=== PATIENT | male | born 1945 | race Caucasian/White ===

== ENCOUNTER 2018-09-08 05:25 | Emergency (ER) | payer MEDICARE ==
[~2018-09-08] VITALS: Ht 172.7 cm; Wt 74.8 kg
[~2018-09-08 05:25] MED LIST: ONDA4TAB10 PO
[2018-09-08] MEDS ORDERED: ONDANSETRON ODT 4 MG TAB.RAPDIS PO ONE (06:00)
--- NOTE | 2018-09-08 06:02 | PHYS DOC ---
Past History Past Medical History: Anxiety, Cancer, Constipation, Depression, Gallstones, Hypertension, Hypothyroid Past Surgical History: Appendectomy, Cancer Surgery, Other Smoking: Cigarettes, Quit Greater Than 1 Year Alcohol Use: None Drug Use: None Adult General Chief Complaint Chief Complaint: MEDICATION REFILL [facility] HPI 73-year-old male presents for medication refill. The patient takes oxycodone, [place], morphine sulfate ER, and alprazolam multiple times a day. He has a standing prescription for all 4 of these at the [facility]. He tells me that he presents here because he cannot get down to [place]. He drove here in his own car. He denies fever or chills. He does state being nauseous and "needing Xanax". Review of Systems Review of Systems Constitutional: Denies fever or chills [] Eyes: Denies change in visual acuity, redness, or eye pain [] HENT: Denies nasal congestion or sore throat [] Respiratory: Denies cough or shortness of breath [] Cardiovascular: No additional information not addressed in HPI [] GI: Denies abdominal pain, nausea, vomiting, bloody stools or diarrhea [] : Denies dysuria or hematuria [] Musculoskeletal: Denies back pain or joint pain [] Integument: Denies rash or skin lesions [] Neurologic: Denies headache, focal weakness or sensory changes [] Endocrine: Denies polyuria or polydipsia [] All other systems were reviewed and found to be within normal limits, except as documented in this note. Allergies Allergies Allergies Coded Allergies Type Severity Reaction Last Updated Verified aspirin Allergy Intermediate Nausea and Vomiting 07/11/14 No Physical Exam Physical Exam Constitutional: Well developed, well nourished, no acute distress, non-toxic appearance. [] HENT: Normocephalic, atraumatic, bilateral external ears normal, oropharynx moist, no oral exudates, nose normal. [] Eyes: PERRLA, EOMI, conjunctiva normal, no discharge. [] Neck: Normal range of motion, no tenderness, supple, no stridor. [] Cardiovascular:Heart rate regular rhythm, no murmur [] Lungs & Thorax: Bilateral breath sounds clear to auscultation [] Abdomen: Bowel sounds normal, soft, no tenderness, no masses, no pulsatile masses. [] Skin: Warm, dry, no erythema, no rash. [] Back: No tenderness, no CVA tenderness. [] Extremities: No tenderness, no cyanosis, no clubbing, ROM intact, no edema. [] Neurologic: Alert and oriented X 3, normal motor function, normal sensory function, no focal deficits noted. [] Psychologic: Affect normal, judgement normal, mood normal. [] EKG EKG [] Radiology/Procedures Radiology/Procedures [] Course & Med Decision Making Course & Med Decision Making Pertinent Labs and Imaging studies reviewed. (See chart for details) I inform the patient that I could not refill his for controlled substances prescriptions. He has a prescribing doctor and a filling pharmacy. I told him that he must work with them to resolve getting these medications. We did give him 8 mg of Zofran ODT for his nausea. He is stable for discharge at this time. [] Dragon Disclaimer Dragon Disclaimer This electronic medical record was generated, in whole or in part, using a voice recognition dictation system. Departure Departure: Impression: Primary Impression: Medication refill Disposition: HOME, SELF-CARE Condition: STABLE Referrals: MYRON PINO DO (PCP) Patient Instructions: Medication Refill, Emergency Department Scripts Ondansetron (ONDANSETRON ODT) 4 Mg Tab.rapdis 1 TAB PO PRN Q6-8HRS PRN for VOMITING, #16 TAB Prov: ТАТЬЯНА BABIN DO 09/08/18 ТАТЬЯНА BABIN DO Sep 08, 2018 06:02
[2018-09-08 06:10] VITALS: BP 140/68
[2018-09-08] MEDS ORDERED: ONDA4TAB12 PO (06:13)
== END 2018-09-08 06:17 | disposition home or self-care (01) ==
LOC: ER 05:25
DX: R11.0 Nausea (principal); Z76.0 Encounter for issue of repeat prescription; F41.9 Anxiety disorder, unspecified; F32.9 Major depressive disorder, single episode, unspecified; I10 Essential (primary) hypertension; E03.9 Hypothyroidism, unspecified; Z87.891 Personal history of nicotine dependence; Z88.6 Allergy status to analgesic agent
CPT/HCPCS: 99283; Q0162

== ENCOUNTER 2019-04-15 18:27 | Inpatient (IN) | payer MEDICARE ==
[~2019-04-15] VITALS: Ht 172.7 cm; Wt 73.9 kg
[~2019-04-15 18:27] MED LIST changes: +ONDA4TAB12 PO
[2019-04-15] MEDS ORDERED: IV NORMAL SALINE 1,000ML 1,000 ML IV ONE (19:00)
[2019-04-15 19:12] LABS: BASO % 1 % (0-3); EOS # 0.3 x10^3/uL (0.0-0.7); EOS % 5 % (0-3); HEMATOCRIT 33.2 % (39.0-53.0); HEMOGLOBIN 11.2 g/dL (13.0-17.5); LYMPH # 2.6 x10^3/uL (1.0-4.8); LYMPH % 40 % (24-48); MEAN CORPUSCULAR HEMOGLOBIN 37 pg (25-35); MEAN CORPUSCULAR HGB CONC 34 g/dL (31-37); MEAN CORPUSCULAR VOLUME 108 fL (79-100); MONO # 0.6 x10^3/uL (0.0-1.1); MONO % 9 % (0-9); NEUT # 3.1 x10^3uL (1.8-7.7); NEUT % 47 % (31-73); PLATELET COUNT 178 x10^3/uL (140-400); RED BLOOD COUNT 3.06 x10^6/uL (4.30-5.70); RED CELL DISTRIBUTION WIDTH 14.6 % (11.5-14.5); WHITE BLOOD COUNT 6.7 x10^3/uL (4.0-11.0)
[2019-04-15] MEDS: NALOXONE 0.4 MG/ML VIAL. IV ONE ×2 (19:15→19:19)
[2019-04-15 19:37] LABS: CALCIUM 8.9 mg/dL (8.5-10.1); CREATININE 1.1 mg/dL (0.7-1.3); GFR 65.3; POTASSIUM 3.9 mmol/L (3.5-5.1)
[2019-04-15 19:43] LABS: ALBUMIN 3.7 g/dL (3.4-5.0); TOTAL BILIRUBIN 0.2 mg/dL (0.2-1.0); TOTAL PROTEIN 7.3 g/dL (6.4-8.2)
[2019-04-15 20:18] LABS: BACTERIA,URINE 0 /HPF (0-FEW); BILIRUBIN,URINE NEG (NEG); CLARITY,URINE CLOUDY; COLOR,URINE AMBER; GLUCOSE,URINE NEG (NEG); NITRITE,URINE NEG (NEG); SQUAMOUS EPITHELIAL CELL,UR FEW /LPF; UROBILINOGEN,URINE 0.2 mg/dL (0.2 mg/dL)
[2019-04-15 20:21] LABS: AMPHETAMINE/METHAMPHETAMINE NEG (NEG); BARBITURATES NEG (NEG); BENZODIAZEPINES POS (NEG); CANNABINOIDS NEG (NEG); COCAINE NEG (NEG); METHADONE NEG (NEG); OPIATES POS (NEG); PHENCYCLIDINE NEG (NEG)
--- NOTE | 2019-04-15 20:36 | PHYS DOC ---
Past History Past Medical History: Cancer Past Surgical History: No Surgical History Smoking: Cigarettes, Quit Greater Than 1 Year Alcohol Use: None Drug Use: None Adult General Chief Complaint Chief Complaint: ALTERED MENTAL STATUS HPI HPI Patient is a 73-year-old male with metastatic cancer who takes high-dose morphine for chronic pain control. He was found at a local restaurant essentially unresponsive EMS was called and EMS brought him here for evaluation. Patient is unable to provide much in the way of history secondary to his altered mental status.[] Review of Systems Review of Systems Review of systems is unobtainable secondary to altered mental status Current Medications Current Medications Current Medications Medications (Trade) Dose Ordered Sig/Juan Manuel Start Time Stop Time Status Last Admin Dose Admin Naloxone HCl (Narcan) 0.8 mg 1X ONCE 04/15/19 19:15 04/15/19 19:16 DC Sodium Chloride 1,000 ml @ 1,000 mls/hr 1X ONCE 04/15/19 19:00 04/15/19 19:59 DC 04/15/19 19:05 1,000 MLS/HR Allergies Allergies Allergies Coded Allergies Type Severity Reaction Last Updated Verified aspirin Allergy Intermediate Nausea and Vomiting 07/11/14 No Physical Exam Physical Exam Constitutional: Frail chronically ill obtunded. [] HENT: Normocephalic, atraumatic, bilateral external ears normal, oropharynx moist, no oral exudates, nose normal. [] Eyes: Pupils 1 mm and sluggish. [] Neck: Normal range of motion, no tenderness, supple, no stridor. [] Cardiovascular:Heart rate bradycardic no murmur[] Lungs & Thorax: Bilateral breath sounds clear to auscultation [] Abdomen: Bowel sounds diminished but his abdomen is soft nontender nondistended. [] Skin: Warm, dry, no erythema, no rash. [] Back: No tenderness, no CVA tenderness. [] Extremities: No tenderness, no cyanosis, no clubbing, ROM intact, no edema. [] Neurologic: Arouses to vigorous stimulation moves all extremities will answer questions. [] Psychologic: Somnolent. [] Current Patient Data Vital Signs Vital Signs Date Time Temp Pulse Resp B/P (MAP) Pulse Ox O2 Delivery O2 Flow Rate FiO2 04/15/19 20:16 51 14 109/53 (71) 98 Room Air 04/15/19 18:48 98.1 Lab Results Laboratory Tests Test 04/15/19 18:33 04/15/19 18:35 04/15/19 19:36 Glucose (Fingerstick) 95 mg/dL (70-99) White Blood Count 6.7 x10^3/uL (4.0-11.0) Red Blood Count 3.06 x10^6/uL (4.30-5.70) L Hemoglobin 11.2 g/dL (13.0-17.5) L Hematocrit 33.2 % (39.0-53.0) L Mean Corpuscular Volume 108 fL (79-100) H Mean Corpuscular Hemoglobin 37 pg (25-35) H Mean Corpuscular Hemoglobin Concent 34 g/dL (31-37) Red Cell Distribution Width 14.6 % (11.5-14.5) H Platelet Count 178 x10^3/uL (140-400) Neutrophils (%) (Auto) 47 % (31-73) Lymphocytes (%) (Auto) 40 % (24-48) Monocytes (%) (Auto) 9 % (0-9) Eosinophils (%) (Auto) 5 % (0-3) H Basophils (%) (Auto) 1 % (0-3) Neutrophils # (Auto) 3.1 x10^3uL (1.8-7.7) Lymphocytes # (Auto) 2.6 x10^3/uL (1.0-4.8) Monocytes # (Auto) 0.6 x10^3/uL (0.0-1.1) Eosinophils # (Auto) 0.3 x10^3/uL (0.0-0.7) Basophils # (Auto) 0.0 x10^3/uL (0.0-0.2) Sodium Level 142 mmol/L (136-145) Potassium Level 3.9 mmol/L (3.5-5.1) Chloride Level 104 mmol/L (98-107) Carbon Dioxide Level 29 mmol/L (21-32) Anion Gap 9 (6-14) Blood Urea Nitrogen 21 mg/dL (8-26) Creatinine 1.1 mg/dL (0.7-1.3) Estimated GFR (Cockcroft-Gault) 65.3 BUN/Creatinine Ratio 19 (6-20) Glucose Level 101 mg/dL (70-99) H Calcium Level 8.9 mg/dL (8.5-10.1) Total Bilirubin 0.2 mg/dL (0.2-1.0) Aspartate Amino Transferase (AST) 22 U/L (15-37) Alanine Aminotransferase (ALT) 21 U/L (16-63) Alkaline Phosphatase 84 U/L (46-116) Troponin I Quantitative < 0.017 ng/mL (0-0.055) Total Protein 7.3 g/dL (6.4-8.2) Albumin 3.7 g/dL (3.4-5.0) Albumin/Globulin Ratio 1.0 (1.0-1.7) Ethyl Alcohol Level < 10 mg/dL (0-10) Urine Collection Type Unknown Urine Color [place] Urine Clarity Cloudy Urine pH 5.5 Urine Specific [place] >=1.030 Urine Protein 30 mg/dl (NEG-TRACE) Urine Glucose (UA) Neg mg/dL (NEG) Urine Ketones (Stick) Neg mg/dL (NEG) Urine Blood Large (NEG) Urine Nitrite Neg (NEG) Urine Bilirubin Neg (NEG) Urine Urobilinogen Dipstick 0.2 mg/dL (0.2 mg/dL) Urine Leukocyte Esterase Trace (NEG) Urine RBC 1-2 /HPF (0-2) Urine WBC 11-20 /HPF (0-4) Urine Squamous Epithelial Cells Few /LPF Urine Bacteria 0 /HPF (0-FEW) Urine Opiates Screen Pos (NEG) Urine Methadone Screen Neg (NEG) Urine Barbiturates Neg (NEG) Urine Phencyclidine Screen Neg (NEG) Urine Amphetamine/Methamphetamine Neg (NEG) Urine Benzodiazepines Screen Pos (NEG) Urine Cocaine Screen Neg (NEG) Urine Cannabinoids Screen Neg (NEG) Urine Ethyl Alcohol Neg (NEG) EKG EKG EKG: Sinus bradycardia and no obvious ischemia rate of 50[] Radiology/Procedures Radiology/Procedures [] Course & Med Decision Making Course & Med Decision Making Pertinent Labs and Imaging studies reviewed. (See chart for details) [ED course: Evaluation reveals a 73-year-old male who is quite somnolent. On ar rival he had signs of overdose including respiratory rate of 8-10 difficult to arouse. We were going to give him some Narcan by the time the medication was ready to administer he started to wake up a little bit more. Neurologically he was intact in other words there were no lateralizing neurologic symptoms that I could identify he was answering questions appropriate but still very somnolent. His urine drug screen showed both opiates and benzos. I suspect he is overdosed on his prescription morphine.] Dragon Disclaimer Dragon Disclaimer This electronic medical record was generated, in whole or in part, using a voice recognition dictation system. Departure Departure: Impression: Primary Impression: Accidental overdose Disposition: ADMITTED INPATIENT Admitting Physician: Christal Otto Condition: GUARDED Referrals: NON,STAFF (PCP) Problem Qualifiers Primary Impression: Accidental overdose Encounter type: initial encounter Qualified Codes: T50.901A - Poisoning by unspecified drugs, medicaments and biological substances, accidental (unintentional), initial encounter MITCHELL ANTHONY DO Apr 15, 2019 20:36
[2019-04-15] MEDS ORDERED: ONDANSETRON PF 4 MG/2 ML VIAL. IV PRN (20:45)
[2019-04-15] MEDS ORDERED: LISI10TA2 PO (21:51)
[2019-04-15] MEDS ORDERED: ATEN25TA2 PO (21:51)
[2019-04-15] MEDS ORDERED: CELE-20 PO (21:51)
[2019-04-15] MEDS ORDERED: SERT100T8 PO (21:51)
[2019-04-15] MEDS ORDERED: LEVO150T5 PO (22:03)
[2019-04-15] MEDS ORDERED: SIMV10TA15 PO (22:03)
[2019-04-15] MEDS ORDERED: HYDR12.58 PO (22:03)
[2019-04-15] MEDS ORDERED: POTA10TA PO (22:03)
[2019-04-15 22:41] VITALS: BP 99/55
--- NOTE | 2019-04-15 22:50 | EKG ---
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
[2019-04-15] MEDS ORDERED: NALOXONE 0.4 MG/ML VIAL. IV ONE (23:00)
[2019-04-15] MEDS: IV NORMAL SALINE 1,000ML 1,000 ML IV SCH (23:01)
--- NOTE | 2019-04-16 00:36 | NUR ---
PT presented with accidental overdose with AMS. PT transported to unit via EMS, safely transferred to bed. PT sedated, somnolent at time of assessment. PT able to arouse but not able to receive much history. 04/06/19. PT lives with daughter. History obtained mostly from previous visits. PT unable to confirm medications.
[2019-04-16 05:54] VITALS: BP 106/63
[2019-04-16] MEDS: IV NORMAL SALINE 1,000ML 1,000 ML IV SCH (06:06)
--- NOTE | 2019-04-16 09:27 | NUR ---
NURSING NOTES: UPON MORNING ASSESSMENT TODAY PATIENT STATES HE DOES NOT BELIEVE HE HAD AN OVERDOSE OF MEDICATION. PATIENT STATES HIS PAST AWAY "LAST SATURDAY" (04/06/19). PATIENT STATES HE HAS BEEN AWAKE FOR THE PAST 3 DAYS WITHOUT SLEEP, PATIENT BELIEVES HE JUST "PASSED OUT" DUE TO LACK OF SLEEP. WILL CONTINUE TO MONITOR.
[2019-04-16 10:16] VITALS: BP 113/60
--- NOTE | 2019-04-16 12:49 | NUR ---
NURSING NOTES: PATIENT STATES HE WANTS TO LEAVE WITHOUT BEING SEEN BY DR. LORENZO. STATES "HE IS NOT MY DOCTOR AND KNOWS NOTHING ABOUT ME." PATIENT EDUCATION ON RISKS OF LEAVING AMA BUT STATES UNDERSTANDING. DR. LORENZO MADE AWARE. DAUGHTER, DEREK, CALLED STATES SHE WILL COME PICK HIM UP. NO FURTHER CONCERNS AT THIS TIME.
--- NOTE | 2019-04-16 14:44 | NUR ---
NURSING NOTES: PATIENT DAUGHTER HERE AT THIS TIME AND ESCORTED PATIENT TO FAMILY VEHICLE. ALL PATIENT BELONGINGS SENT WITH PATIENT.
== END 2019-04-16 14:46 | disposition left against medical advice (07) | DRG 918 ==
LOC: ER 18:27 → 1 SOUTH 20:38
PROVIDERS: ADMIT Internal Medicine; ATTEND Internal Medicine
DX: T50.901A Poisoning by unspecified drugs, medicaments and biological substances, accidental (unintentional), initial encounter (principal); G89.29 Other chronic pain; C80.1 Malignant (primary) neoplasm, unspecified; Z53.29 Procedure and treatment not carried out because of patient's decision for other reasons; Y92.89 Other specified places as the place of occurrence of the external cause; Z87.891 Personal history of nicotine dependence
CPT/HCPCS: 36415; 80053; 80307; 81001; 82947; 84484; 85025; 87086; 87186; 93005; 96360; G0480; J2310; 99285-25; J7030

== ENCOUNTER 2019-07-01 21:05 | Emergency (ER) | payer MEDICARE ==
[~2019-07-01] VITALS: Ht 172.7 cm; Wt 73.6 kg
[~2019-07-01 21:05] MED LIST changes: +ATEN25TA2 PO; +CELE-20 PO; +HYDR12.58 PO; +LEVO150T5 PO; +LISI10TA2 PO; +POTA10TA PO; +SERT100T8 PO; +SIMV10TA15 PO
[2019-07-01 21:58] LABS: BASO % 0 % (0-3); EOS # 0.3 x10^3/uL (0.0-0.7); EOS % 3 % (0-3); HEMATOCRIT 27.1 % (39.0-53.0); LYMPH # 1.8 x10^3/uL (1.0-4.8); LYMPH % 21 % (24-48); MEAN CORPUSCULAR HEMOGLOBIN 36 pg (25-35); MEAN CORPUSCULAR HGB CONC 33 g/dL (31-37); MEAN CORPUSCULAR VOLUME 110 fL (79-100); MONO # 0.5 x10^3/uL (0.0-1.1); MONO % 6 % (0-9); NEUT # 5.7 x10^3uL (1.8-7.7); NEUT % 69 % (31-73); PLATELET COUNT 217 x10^3/uL (140-400); RED BLOOD COUNT 2.47 x10^6/uL (4.30-5.70); WHITE BLOOD COUNT 8.3 x10^3/uL (4.0-11.0)
[2019-07-01 22:12] LABS: CALCIUM 8.6 mg/dL (8.5-10.1); GFR 72.6; POTASSIUM 3.4 mmol/L (3.5-5.1)
[2019-07-01 22:17] LABS: ALBUMIN 2.8 g/dL (3.4-5.0); DIRECT BILIRUBIN 0.1 mg/dL (0.0-0.2); MAGNESIUM 1.6 mg/dL (1.8-2.4); TOTAL BILIRUBIN 0.3 mg/dL (0.2-1.0); TOTAL PROTEIN 6.3 g/dL (6.4-8.2)
[2019-07-01 22:55] LABS: BARBITURATES NEG (NEG); BENZODIAZEPINES POS (NEG); CANNABINOIDS NEG (NEG); COCAINE NEG (NEG); METHADONE NEG (NEG); OPIATES POS (NEG); PHENCYCLIDINE NEG (NEG)
[2019-07-01 23:00] LABS: AMPHETAMINE/METHAMPHETAMINE NEG (NEG)
[2019-07-01 23:06] LABS: BILIRUBIN,URINE NEG (NEG); CLARITY,URINE HAZY; COLOR,URINE YELLOW; GLUCOSE,URINE NEG (NEG); NITRITE,URINE NEG (NEG); UROBILINOGEN,URINE 0.2 mg/dL (0.2 mg/dL)
[2019-07-01 23:07] LABS: BACTERIA,URINE MOD /HPF (0-FEW); SQUAMOUS EPITHELIAL CELL,UR OCC /LPF; WBC,URINE >40 /HPF (0-4)
[2019-07-02] MEDS ORDERED: SIMV10TA15 PO (00:11)
[2019-07-02] MEDS ORDERED: MORP60TA37 PO (00:11)
[2019-07-02] MEDS ORDERED: HYDR-3136 PO (00:11)
[2019-07-02] MEDS ORDERED: CHOL200078 PO (00:11)
[2019-07-02] MEDS ORDERED: [UNRECOGNIZED DRUG - OTHER] (00:11)
[2019-07-02] MEDS ORDERED: SULF1TAB24 PO (00:11)
[2019-07-02] MEDS ORDERED: [UNRECOGNIZED DRUG - OTHER] (00:11)
[2019-07-02] MEDS ORDERED: SERT25TA PO (00:11)
[2019-07-02] MEDS ORDERED: ASCO500C PO (00:11)
[2019-07-02] MEDS ORDERED: ALPR1TAB6 PO (00:11)
[2019-07-02] MEDS ORDERED: [UNRECOGNIZED DRUG - REMARK] (00:37)
--- NOTE | 2019-07-02 00:40 | PHYS DOC ---
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 Patient was just discharged from hospital yesterday af ter having taken accidental overdose of pain medication. Patient does have history of cancer and had accidentally taken too much his pain medication. Family indicates that patient has been making comments over the last few months, such as asking them to take him out back and shooting him. Patient denies any suicidal or homicidal ideations at this time. He does admit to saying those things states that he didn't really mean it and he knows that they were never harm him.[] Review of Systems Review of Systems Constitutional: Denies fever or chills [] Respiratory: Denies cough or shortness of breath [] Cardiovascular: No additional information not addressed in HPI [] GI: Denies abdominal pain, nausea, vomiting, bloody stools or diarrhea [] Integument: Denies rash or skin lesions [] Neurologic: Denies headache, focal weakness or sensory changes [] All other systems were reviewed and found to be within normal limits, except as documented in this note. Allergies Allergies Allergies Coded Allergies Type Severity Reaction Last Updated Verified aspirin Allergy Severe Swelling 07/01/19 No oxycodone Allergy Severe 07/02/19 Yes tizanidine Allergy Severe 07/02/19 Yes Physical Exam Physical Exam Constitutional: Well developed, well nourished, no acute distress, non-toxic appearance. [] HENT: Normocephalic, atraumatic, bilateral external ears normal, oropharynx moist, no oral exudates, nose normal. [] Eyes: PERRLA, EOMI, conjunctiva normal, no discharge. [] Neck: Normal range of motion, no tenderness, supple, no stridor. [] Cardiovascular:Heart rate regular rhythm, no murmur [] Lungs & Thorax: Bilateral breath sounds clear to auscultation [] Abdomen: Bowel sounds normal, soft, no tenderness. [] Skin: Warm, dry, no erythema, no rash. [] Extremities: No tenderness, no cyanosis, no clubbing, ROM intact, no edema. [] Neurologic: Alert and oriented X 3, normal motor function, normal sensory function, no focal deficits noted. [] Psychologic: Affect normal, mood depressed. [] Current Patient Data Vital Signs Vital Signs Date Time Temp Pulse Resp B/P (MAP) Pulse Ox O2 Delivery O2 Flow Rate FiO2 07/01/19 21:19 98.6 70 16 123/65 (84) 97 Room Air Lab Results Laboratory Tests Test 07/01/19 21:40 07/01/19 22:30 White Blood Count 8.3 x10^3/uL (4.0-11.0) Red Blood Count 2.47 x10^6/uL (4.30-5.70) L Hemoglobin 9.0 g/dL (13.0-17.5) L Hematocrit 27.1 % (39.0-53.0) L Mean Corpuscular Volume 110 fL (79-100) H Mean Corpuscular Hemoglobin 36 pg (25-35) H Mean Corpuscular Hemoglobin Concent 33 g/dL (31-37) Red Cell Distribution Width 14.0 % (11.5-14.5) Platelet Count 217 x10^3/uL (140-400) Neutrophils (%) (Auto) 69 % (31-73) Lymphocytes (%) (Auto) 21 % (24-48) L Monocytes (%) (Auto) 6 % (0-9) Eosinophils (%) (Auto) 3 % (0-3) Basophils (%) (Auto) 0 % (0-3) Neutrophils # (Auto) 5.7 x10^3uL (1.8-7.7) Lymphocytes # (Auto) 1.8 x10^3/uL (1.0-4.8) Monocytes # (Auto) 0.5 x10^3/uL (0.0-1.1) Eosinophils # (Auto) 0.3 x10^3/uL (0.0-0.7) Basophils # (Auto) 0.0 x10^3/uL (0.0-0.2) Sodium Level 140 mmol/L (136-145) Potassium Level 3.4 mmol/L (3.5-5.1) L Chloride Level 107 mmol/L (98-107) Carbon Dioxide Level 24 mmol/L (21-32) Anion Gap 9 (6-14) Blood Urea Nitrogen 15 mg/dL (8-26) Creatinine 1.0 mg/dL (0.7-1.3) Estimated GFR (Cockcroft-Gault) 72.6 Glucose Level 116 mg/dL (70-99) H Calcium Level 8.6 mg/dL (8.5-10.1) Magnesium Level 1.6 mg/dL (1.8-2.4) L Total Bilirubin 0.3 mg/dL (0.2-1.0) Direct Bilirubin 0.1 mg/dL (0.0-0.2) Aspartate Amino Transferase (AST) 22 U/L (15-37) Alanine Aminotransferase (ALT) 17 U/L (16-63) Alkaline Phosphatase 55 U/L (46-116) Total Protein 6.3 g/dL (6.4-8.2) L Albumin 2.8 g/dL (3.4-5.0) L Ethyl Alcohol Level < 10 mg/dL (0-10) Urine Collection Type Void Urine Color Yellow Urine Clarity Hazy Urine pH 5.5 Urine Specific [place] 1.025 Urine Protein 100 mg/dl (NEG-TRACE) Urine Glucose (UA) Neg mg/dL (NEG) Urine Ketones (Stick) Neg mg/dL (NEG) Urine Blood Large (NEG) Urine Nitrite Neg (NEG) Urine Bilirubin Neg (NEG) Urine Urobilinogen Dipstick 0.2 mg/dL (0.2 mg/dL) Urine Leukocyte Esterase Small (NEG) Urine RBC 6-10 /HPF (0-2) Urine WBC >40 /HPF (0-4) Urine Squamous Epithelial Cells Occ /LPF Urine Bacteria Mod /HPF (0-FEW) Urine Opiates Screen Pos (NEG) Urine Methadone Screen Neg (NEG) Urine Barbiturates Neg (NEG) Urine Phencyclidine Screen Neg (NEG) Urine Amphetamine/Methamphetamine Neg (NEG) Urine Benzodiazepines Screen Pos (NEG) Urine Cocaine Screen Neg (NEG) Urine Cannabinoids Screen Neg (NEG) Urine Ethyl Alcohol Neg (NEG) EKG EKG [] Radiology/Procedures Radiology/Procedures [] Course & Med Decision Making Course & Med Decision Making Pertinent Labs and Imaging studies reviewed. (See chart for details) Patient moved to room upon arrival was evaluated by ER staff after which blood work was obtained. Patient's workup has returned unremarkable and patient evaluated by tele-psych. After tele-psych evaluation, screen her did not feel the patient met criteria for involuntary hold and has completed a safety plan with patient. Dragon Disclaimer Dragon Disclaimer This electronic medical record was generated, in whole or in part, using a voice recognition dictation system. Departure Departure: Impression: Primary Impression: Depressed affect Disposition: 01 HOME, SELF-CARE Condition: STABLE Referrals: LON GUNDERSON MD (PCP) Patient Instructions: Depression, Adult, Suicidal Feelings, How to Help Yourself, Suicide, Helping Someone Who is Suicidal HAROON DEUTSCH Jr. DO Jul 02, 2019 00:40
[2019-07-02 02:30] VITALS: BP 112/61
== END 2019-07-02 02:57 | disposition home or self-care (01) ==
LOC: ER 21:05
DX: F32.9 Major depressive disorder, single episode, unspecified (principal); E78.00 Pure hypercholesterolemia, unspecified; I10 Essential (primary) hypertension; E03.9 Hypothyroidism, unspecified; G89.29 Other chronic pain; Z87.891 Personal history of nicotine dependence; Z88.6 Allergy status to analgesic agent; Z88.8 Allergy status to other drugs, medicaments and biological substances; Z88.5 Allergy status to narcotic agent
CPT/HCPCS: 36415; 80048; 80076; 80307; 81001; 83735; 85025; 87086; 99284; G0480

== ENCOUNTER 2020-01-29 14:11 | Emergency (ER) | payer MEDICARE ==
[~2020-01-29] VITALS: Ht 172.7 cm; Wt 75.5 kg
[~2020-01-29 14:11] MED LIST changes: +ALPR1TAB6 PO; +ASCO500C PO; +CHOL200078 PO; +HYDR-3136 PO; +MORP60TA37 PO; +SERT25TA PO; +SULF1TAB24 PO; +[UNRECOGNIZED DRUG - OTHER]; +[UNRECOGNIZED DRUG - OTHER]; +[UNRECOGNIZED DRUG - REMARK]
--- NOTE | 2020-01-29 14:21 | PHYS DOC ---
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 EMS personnel and are primary historians as patient cannot accurately re call entirety of medical history. Per , patient began "acting different "yesterday morning without any known inciting event or trauma. This progressed throughout the day, patient was talking to his mother who had a long time ago and not making sense. He has been alert to person and place but not year or time which is not usual for him. Patient admits to taking all medications as prescribed, he has history of taking too many hydrocodone during 1 setting which is what suspects happened today. Patient denies any recent antibiotic use or other changes in baseline health. He has complicated past medical history, has had his prostate removed and partial left nephrectomy from primary prostate cancer. He has been going down to [facility] in [facility] for unknown cancer related injections? He has history of renal failure in the past and admits intermittent dialysis, reports last time he had dialysis was greater than 2 months ago. He still makes urine. On arrival, he reports being thirsty with no other concerning complaints such as COVID-19 contact, fever, chills, chest pain, shortness of breath, abdominal pain, changes in bladder or bowel function, known blood loss, recent travel, hemoptysis, or changes in weight. Review of Systems Review of Systems Fourteen body systems of review of systems have been reviewed. See HPI for pertinent positives and negative responses, other orosco all other systems are negative, non-pertinent or non-contributory Allergies Allergies Allergies Coded Allergies Type Severity Reaction Last Updated Verified aspirin Allergy Severe Swelling 07/01/19 No oxycodone Allergy Severe 07/02/19 Yes tizanidine Allergy Severe 07/02/19 Yes Physical Exam Physical Exam Constitutional: Pt is oriented to person, place, but not time. Pt appears malnourished with poor hygiene, has mulch on backside of jacket. HENT: Head: Normocephalic and atraumatic. Mouth/Throat: Oropharynx is clear and moist. Poor dentition No hematomas or lacerations or abrasions to face or scalp OP clear, no blood, no malocclusion, dentition intact Nares clear, no nasal septal hematoma TMs clear, no hemotympanum Midface stable Eyes: Conjunctivae and EOM are normal. Pupils are equal, round, and reactive to light. Neck: C-spine midline nontender, no step-offs Cardiovascular: Normal rate, regular rhythm and normal heart sounds. Pulmonary/Chest: Effort normal and breath sounds normal. No respiratory distress. No wheezes. CTA bilaterally Abdominal: Soft. Bowel sounds are normal. Pt exhibits no distension. There is no tenderness. Musculoskeletal: No bony tenderness to extremities, no deformities, full ROM extremities Chest wall stable Pelvis stable and non-tender No vertebral TTP and spine without stepoffs Neurological: Pt is alert and oriented to person, place, but not time. Believes the year is 1999, states the president is Currymarylou [place] Moving all extremities willfully, able to wiggle all fingers and toes Alert Sensation grossly intact Skin: Skin is warm and dry. No abrasions, no lacerations Psychiatric: Behavior is appropriate for situation Nursing note and vitals reviewed. Current Patient Data Vital Signs Vital Signs Date Time Temp Pulse Resp B/P (MAP) Pulse Ox O2 Delivery O2 Flow Rate FiO2 01/29/20 15:36 98.7 50 16 146/63 (90) 92 01/29/20 15:01 Room Air Lab Results Laboratory Tests Test 01/29/20 14:24 01/29/20 16:24 White Blood Count 8.5 x10^3/uL (4.0-11.0) Red Blood Count 2.26 x10^6/uL (4.30-5.70) Hemoglobin 8.2 g/dL (13.0-17.5) Hematocrit 25.3 % (39.0-53.0) Mean Corpuscular Volume 112 fL (79-100) Mean Corpuscular Hemoglobin 36 pg (25-35) Mean Corpuscular Hemoglobin Concent 33 g/dL (31-37) Red Cell Distribution Width 14.6 % (11.5-14.5) Platelet Count 174 x10^3/uL (140-400) Neutrophils (%) (Auto) 83 % (31-73) Lymphocytes (%) (Auto) 12 % (24-48) Monocytes (%) (Auto) 5 % (0-9) Eosinophils (%) (Auto) 0 % (0-3) Basophils (%) (Auto) 0 % (0-3) Neutrophils # (Auto) 7.0 x10^3uL (1.8-7.7) Lymphocytes # (Auto) 1.1 x10^3/uL (1.0-4.8) Monocytes # (Auto) 0.4 x10^3/uL (0.0-1.1) Eosinophils # (Auto) 0.0 x10^3/uL (0.0-0.7) Basophils # (Auto) 0.0 x10^3/uL (0.0-0.2) Prothrombin Time 12.1 SEC (9.4-11.4) Prothromb Time International Ratio 1.2 (0.9-1.1) Activated Partial Thromboplast Time 26 SEC (23-33) Sodium Level 137 mmol/L (136-145) Potassium Level 6.7 mmol/L (3.5-5.1) Chloride Level 102 mmol/L (98-107) Carbon Dioxide Level 8 mmol/L (21-32) Anion Gap 27 (6-14) Blood Urea Nitrogen 98 mg/dL (8-26) Creatinine 11.6 mg/dL (0.7-1.3) Estimated GFR (Cockcroft-Gault) 4.3 BUN/Creatinine Ratio 8 (6-20) Glucose Level 115 mg/dL (70-99) Calcium Level 9.3 mg/dL (8.5-10.1) Magnesium Level 1.8 mg/dL (1.8-2.4) Total Bilirubin 0.3 mg/dL (0.2-1.0) Aspartate Amino Transf (AST/SGOT) 81 U/L (15-37) Alanine Aminotransferase (ALT/SGPT) 34 U/L (16-63) Alkaline Phosphatase 66 U/L (46-116) Ammonia 29 mcmol/L (11-34) Troponin I Quantitative 0.072 ng/mL (0-0.055) Total Protein 7.0 g/dL (6.4-8.2) Albumin 3.6 g/dL (3.4-5.0) Albumin/Globulin Ratio 1.1 (1.0-1.7) Salicylates Level < 2.8 mg/dL (2.8-20.0) Salicylate Last Dose Date Unknown Salicylate Last Dose Time Unknown Acetaminophen Level < 2.0 mcg/mL (10-30) Acetaminophen Last Dose Date Unknown Acetaminophen Last Dose Time Unknown Ethyl Alcohol Level < 10 mg/dL (0-10) Blood Gas pH 7.18 (7.35-7.46) Blood Gas PCO2 27 mmHg (35-46) Blood Gas PO2 81 mmHg (71-100) Blood Gas HCO3 10 mmol/L (21-28) Arterial Bld O2 Saturation (Calc) 93 % (92-99) FiO2 21 % EKG EKG EKG ordered and interpreted by myself at 1431 hrs. as sinus rhythm at 54 bpm, unremarkable intervals, no axis deviation, no acute ischemic findings, no STEMI Radiology/Procedures Radiology/Procedures PROCEDURE: PORTABLE CHEST 1V PORTABLE CHEST 1V Clinical indications: Altered mental status COMPARISON: July 11, 2014. Findings: Chronic interstitial lung disease is seen bilaterally. There is a new ill-defined infiltrate within the lateral right midlung zone. No pleural effusion or pneumothorax is seen. The heart size and mediastinum and pulmonary arteries and both alisha are stable. Increased density of the bones is seen. This is consistent with osteoblastic metastatic disease. Impression: New small ill-defined lateral right midlung zone infiltrate. Osteoblastic metastatic disease Electronically signed by: Rasheed Christianson MD (01/29/2020 3:04 PM) [id number] PROCEDURE: CT HEAD WO CONTRAST INDICATION: Reason: AMS, CONFUSION / Spl. Instructions: / History: COMPARISON: None. TECHNIQUE: Axial CT images obtained through the head without intravenous contrast. One or more of the following individualized dose reduction techniques were utilized for this examination: 1. Automated exposure control; 2. Adjustment of the mA and/or kV according to patient size; 3. Use of iterative reconstruction technique. FINDINGS: No intracranial hemorrhage. No midline shift. Basal cisterns patents. Ventricles and sulci are globally prominent. No acute osseous abnormality. Orbits and paranasal sinuses unremarkable. Scattered foci of low attenuation within the white matter. There is a small region of encephalomalacia in the left cerebral hemisphere posteriorly near the vertex. Could be from prior insult. Calcific atherosclerosis. IMPRESSION: 1. No acute intracranial hemorrhage. 2. Scattered regions of low attenuation within the white matter. Non-specific in nature but frequently secondary to small vessel ischemic disease. 3. Prominence of ventricles and sulci which is frequently secondary to age related volume loss. Electronically signed by: Portillo Yousif MD (01/29/2020 3:07 PM) [id number] Heart Score HEART Score for Chest Pain: HEART Score for Chest Pain Response (Comments) Value History Moderately Suspicious 1 ECG Nonspecific Repolarizatio 1 Age > 65 2 Risk Factors >3 Risk Factors or Hx CAD 2 Troponin >1-<3x Normal Limit 1 Total 7 Risk Factors: Risk Factors: DM, Current or recent (<one month) smoker, HTN, HLP, family history of CAD, obesity. Risk Scores: Risk Factors: DM, Current or recent (<one month) smoker, HTN, HLP, family history of CAD, obesity. Course & Med Decision Making Course & Med Decision Making Nontoxic ambulatory patient who is not at baseline mentation seen and examined by myself on arrival ABCs grossly nonconcerning Comprehensive history obtained from patient, , and EMS personnel with physical exam with no obvious surgical and/or emergent findings Diagnostic work-up ordered and concerning for several diagnoses such as acute on chronic renal failure, uremic encephalopathy, high anion gap acidosis, and hyperkalemia I discussed extent of work-up with patient. He confirmed he has history of renal failure in the past, does not have a fistula at present. Patient knows about history of cancer. Diagnoses found today or not a surprise to him Narcan administered with mild relief in patient's mentation but still remained what appears to be encephalopathic. IV access obtained, 1 amp of bicarb, 5 units insulin with glucose, 1 amp calcium gluconate administered for hyperkalemia Dr. Otto, hospitalist at [facility] contacted and case discussed. He agreed to admission under his care for continued medical management Dr. Miller, mva reactor operator head at [facility] contacted and case discussed. He agreed with management so far and recommended I start 1 L D5W with 3 A of bicarb at 100 mils an hour. This was initiated prior to transfer Dr. Mccurdy, IR at [facility] contacted and case discussed. Discussed need for nonemergent HD catheter placement tomorrow, 01/30/2020 Patient, , and PCP updated on proposed plan of care and all amenable. All questions and concerns addressed prior to ER transport via EMS to [facility] for admission and continued medical management Chato Disclaimer Chato Disclaimer This electronic medical record was generated, in whole or in part, using a voice recognition dictation system. Departure Departure: Impression: Primary Impression: Acute on chronic renal failure Additional Impressions: Uremic encephalopathy Hyperkalemia Elevated troponin High anion gap metabolic acidosis History of prostate cancer History of partial nephrectomy Macrocytic anemia Disposition: 02 DC/TRF OTHER SHORT TERM HOS (pmc) Admitting Physician: Christal Otto Condition: STABLE Referrals: LON GUNDERSON MD (PCP) Problem Qualifiers AGUSTINA HUFF DO Jan 29, 2020 14:20
[2020-01-29 14:59] LABS: BASO % 0 % (0-3); EOS % 0 % (0-3); HEMATOCRIT 25.3 % (39.0-53.0); HEMOGLOBIN 8.2 g/dL (13.0-17.5); LYMPH # 1.1 x10^3/uL (1.0-4.8); LYMPH % 12 % (24-48); MEAN CORPUSCULAR HEMOGLOBIN 36 pg (25-35); MEAN CORPUSCULAR HGB CONC 33 g/dL (31-37); MEAN CORPUSCULAR VOLUME 112 fL (79-100); MONO # 0.4 x10^3/uL (0.0-1.1); MONO % 5 % (0-9); NEUT % 83 % (31-73); PLATELET COUNT 174 x10^3/uL (140-400); RED BLOOD COUNT 2.26 x10^6/uL (4.30-5.70); RED CELL DISTRIBUTION WIDTH 14.6 % (11.5-14.5); WHITE BLOOD COUNT 8.5 x10^3/uL (4.0-11.0)
--- NOTE | 2020-01-29 15:07 | RAD ---
PORTABLE CHEST 1V Clinical indications: Altered mental status COMPARISON: July 11, 2014. Findings: Chronic interstitial lung disease is seen bilaterally. There is a new ill-defined infiltrate within the lateral right midlung zone. No pleural effusion or pneumothorax is seen. The heart size and mediastinum and pulmonary arteries and both alisha are stable. Increased density of the bones is seen. This is consistent with osteoblastic metastatic disease. Impression: New small ill-defined lateral right midlung zone infiltrate. Osteoblastic metastatic disease Electronically signed by: Rasheed Christianson MD (01/29/2020 3:04 PM) [id number]
--- NOTE | 2020-01-29 15:11 | RAD ---
INDICATION: Reason: AMS, CONFUSION / Spl. Instructions: / History: COMPARISON: None. TECHNIQUE: Axial CT images obtained through the head without intravenous contrast. One or more of the following individualized dose reduction techniques were utilized for this examination: 1. Automated exposure control; 2. Adjustment of the mA and/or kV according to patient size; 3. Use of iterative reconstruction technique. FINDINGS: No intracranial hemorrhage. No midline shift. Basal cisterns patents. Ventricles and sulci are globally prominent. No acute osseous abnormality. Orbits and paranasal sinuses unremarkable. Scattered foci of low attenuation within the white matter. There is a small region of encephalomalacia in the left cerebral hemisphere posteriorly near the vertex. Could be from prior insult. Calcific atherosclerosis. IMPRESSION: 1. No acute intracranial hemorrhage. 2. Scattered regions of low attenuation within the white matter. Non-specific in nature but frequently secondary to small vessel ischemic disease. 3. Prominence of ventricles and sulci which is frequently secondary to age related volume loss. Electronically signed by: Portillo Yousif MD (01/29/2020 3:07 PM) [id number]
[2020-01-29] MEDS ORDERED: NALOXONE 0.4 MG/ML VIAL. IV ONE (15:15)
[2020-01-29 15:43] LABS: ACETAMIN < 2.0 mcg/mL (10-30); ETHANOL < 10 mg/dL (0-10); SALIC < 2.8 mg/dL (2.8-20.0)
[2020-01-29 15:46] LABS: ALBUMIN 3.6 g/dL (3.4-5.0); ALBUMIN/GLOBULIN RATIO 1.1 (1.0-1.7); CALCIUM 9.3 mg/dL (8.5-10.1); CREATININE 11.6 mg/dL (0.7-1.3); GFR 4.3; TOTAL BILIRUBIN 0.3 mg/dL (0.2-1.0)
[2020-01-29 15:48] LABS: POTASSIUM 6.7 mmol/L (3.5-5.1)
[2020-01-29 16:30] LABS: BGAS PH 7.18 (7.35-7.46)
[2020-01-29] MEDS ORDERED: SODIUM BICARB ADULT 8.4% 50 MEQ/50 ML DISP.SYRIN. ONE (16:30)
[2020-01-29] MEDS ORDERED: SODIUM BICARB ADULT 8.4% 50 MEQ/50 ML DISP.SYRIN. IV ONE (16:45)
[2020-01-29] MEDS ORDERED: DEXTROSE 50% 25 GM / 50ML DISP.SYRIN. IV ONE (16:45)
[2020-01-29] MEDS ORDERED: SODIUM BICARB PED 8.4% 10 MEQ/10 ML DISP.SYRIN. IV ONE (16:45)
[2020-01-29] MEDS ORDERED: INSULIN REGULAR 100 UNIT/ML 3ML VIAL. IV ONE (16:45)
[2020-01-29] MEDS ORDERED: CALCIUM GLUCONATE 1,000 MG/10 ML VIAL IV ONE (16:45)
--- NOTE | 2020-01-29 16:58 | EKG ---
[facility] ED [facility] [address] [place] [id number] Test Date: 2020-01-29 Test Time: 14:28:12 Pat Name: ARELY MELENDREZ Department: Room: Gender: M Datastage Developer: : 1945 Requested By: AGUSTINA HUFF Order Number: [id number] Reading MD: Adriel Cummings Measurements Intervals [place] Rate: 54 P: 43 WI: 166 QRS: 44 QRSD: 74 T: 32 QT: 436 QTc: 415 Interpretive Statements SINUS RHYTHM LEFT ATRIAL ABNORMALITY QRS(T) CONTOUR ABNORMALITY CONSISTENT WITH ANTEROSEPTAL INFARCT AGE UNDETERMINED ABNORMAL ECG Electronically Signed On 02-09-2020 12:36:21 [employer]TERPRISE SYSTEMS ADMINISTRATOR by Adriel Cummings
[2020-01-29] MEDS ORDERED: SODIUM BICARBONATE IVF 150 MEQ in IV DEXTROSE 5% 1,000 ML IV ONE (17:00)
[2020-01-29 18:12] VITALS: BP 145/107
[2020-01-29 21:46] LABS: % LYMPHS 10 % (24-48); % MONOS 5 % (0-10); % SEGS 85 % (35-66)
[2020-01-29 21:48] LABS: PLT ESTIMATE ADEQUATE (ADEQUATE)
[2020-01-29 21:49] LABS: BURR CELLS FEW
[2020-01-29 21:51] LABS: POLYCHROMASIA PRESENT
== END 2020-01-29 19:54 | disposition short-term general hospital (02) ==
LOC: ER 14:11
DX: I12.9 Hypertensive chronic kidney disease with stage 1 through stage 4 chronic kidney disease, or unspecified chronic kidney disease (principal); N18.9 Chronic kidney disease, unspecified; R41.82 Altered mental status, unspecified; G93.40 Encephalopathy, unspecified; E87.5 Hyperkalemia; R77.8 Other specified abnormalities of plasma proteins; E87.2 Acidosis; D53.9 Nutritional anemia, unspecified; Z85.46 Personal history of malignant neoplasm of prostate; Z90.89 Acquired absence of other organs; F32.9 Major depressive disorder, single episode, unspecified; E78.00 Pure hypercholesterolemia, unspecified; F17.210 Nicotine dependence, cigarettes, uncomplicated; E03.9 Hypothyroidism, unspecified; Z90.49 Acquired absence of other specified parts of digestive tract; Z98.890 Other specified postprocedural states
CPT/HCPCS: 36415; 36600; 70450; 71045; 80053; 80329; 82140; 82607; 82746; 82803; 83735; 84443; 84484; 85007; 85025; 85610; 85730; 87040; 93005; 96365; 96366; 96375; 96376; 99285; G0480; J0610; J1815; J2310; 96360

== ENCOUNTER 2020-04-17 21:58 | Emergency (ER) | payer MEDICARE ==
[~2020-04-17] VITALS: Ht 172.7 cm; Wt 74.0 kg
[2020-04-17] MEDS ORDERED: IV RINGERS SOLUTION,LACTATED 0 ML IV ONE (22:30)
[2020-04-17 22:36] LABS: BASO % 0 % (0-3); EOS # 0.4 x10^3/uL (0.0-0.7); EOS % 5 % (0-3); HEMATOCRIT 27.6 % (39.0-53.0); HEMOGLOBIN 9.2 g/dL (13.0-17.5); LYMPH # 3.3 x10^3/uL (1.0-4.8); LYMPH % 36 % (24-48); MEAN CORPUSCULAR HEMOGLOBIN 35 pg (25-35); MEAN CORPUSCULAR HGB CONC 33 g/dL (31-37); MEAN CORPUSCULAR VOLUME 104 fL (79-100); MONO # 0.7 x10^3/uL (0.0-1.1); MONO % 8 % (0-9); NEUT # 4.7 x10^3uL (1.8-7.7); NEUT % 52 % (31-73); PLATELET COUNT 207 x10^3/uL (140-400); RED BLOOD COUNT 2.65 x10^6/uL (4.30-5.70); RED CELL DISTRIBUTION WIDTH 18.1 % (11.5-14.5); WHITE BLOOD COUNT 9.1 x10^3/uL (4.0-11.0)
[2020-04-17 23:03] LABS: CALCIUM 8.7 mg/dL (8.5-10.1); CREATININE 2.1 mg/dL (0.7-1.3); GFR 30.9; POTASSIUM 4.6 mmol/L (3.5-5.1)
[2020-04-17 23:08] LABS: ALBUMIN 3.8 g/dL (3.4-5.0); TOTAL BILIRUBIN 0.2 mg/dL (0.2-1.0); TOTAL PROTEIN 7.6 g/dL (6.4-8.2)
--- NOTE | 2020-04-17 23:08 | EKG ---
[facility] ED [facility] [address] [place] [id number] Test Date: 2020-04-17 Test Time: 23:04:26 Pat Name: ARELY MELENDREZ Department: Room: Gender: M Research Computing Specialist: : 1945 Requested By: YINA HERNANDEZ Order Number: [id number] Reading MD: Measurements Intervals [place] Rate: 72 P: 52 CA: 176 QRS: 51 QRSD: 76 T: 41 QT: 380 QTc: 418 Interpretive Statements SINUS RHYTHM QRS(T) CONTOUR ABNORMALITY CONSISTENT WITH ANTEROSEPTAL INFARCT AGE UNDETERMINED ABNORMAL ECG RI6.02 No previous ECG available for comparison
--- NOTE | 2020-04-17 23:40 | RAD ---
EXAM: CT HEAD WITHOUT IV CONTRAST CLINICAL HISTORY: Syncope/fall, lethargic, unable to hold still, follow directions COMPARISON: 01/29/2020. TECHNIQUE: Routine CT of the head without contrast. Soft tissues and bone windows were reviewed. PQRS compliance statement - One or more of the following individualized dose reduction techniques wer e utilized for this study: 1. Automated exposure control 2. Adjustment of the mA and/or kV according to patient size 3. Use of iterative reconstruction technique FINDINGS: Examination is significantly limited by motion artifact. Within these constraints: There is no evidence of hemorrhage, mass or extra-axial fluid collection. Morillo-white differentiation is maintained with no evidence of edema. Subcortical, periventricular as w ell as deep white matter foci of hypoattenuation likely changes of chronic small vessel disease. There is no mass effect or shift of the intracranial structures. The ventricles, basilar cisterns and cortical sulci are normal in size and configuration for the maru ents stated age. The cerebellum and brainstem are unremarkable. Heterogeneous sclerosis in the right frontal region may represent underlying metastatic disease. Mastoid air cells are clear. Partial opacification left maxillary sinus likely sinusitis. The visuali zed portions of the orbits are normal. Scalp hematoma overlying the right frontal region. IMPRESSION: 1. Within the constraints of marked motion artifact, no evidence for acute intracranial process. 2. White matter changes likely chronic small vessel disease. 3. Scalp hematoma overlying the right frontal region. 4. Heterogeneous sclerosis right frontal region may represent metastatic focus. EXAM: CT CERVICAL SPINE WITHOUT IV CONTRAST CLINICAL HISTORY: Syncope/fall, lethargic, unable to hold still, follow directions COMPARISON: None available. TECHNIQUE: Helical CT of the cervical spine was performed. Axial, coronal and sagittal reformatted im ages were also performed. PQRS compliance statement - One or more of the following individualized dose reduction techniques wer e utilized for this study: 1. Automated exposure control 2. Adjustment of the mA and/or kV according to patient size 3. Use of iterative reconstruction technique FINDINGS: Examination is markedly limited given motion artifact. Heterogeneous sclerosis of the visualized osseous structures consistent with metastatic disease. Mild C2-3 disc height loss. Moderate to severe C3-4, C4-5, C5-6 and C6-7 and C7-T1 disc height loss. Endp late osteophytes are seen. Trace anterolisthesis of C5 on C6. Focal reversal of the normal cervical l ordosis apex C6. Multilevel disc protrusions are seen most prominent at C4-5, C5-6, C6-7 and C7-T1. IMPRESSION: 1. Examination is markedly limited given motion artifact 2. No acute fracture or subluxation of the cervical spine 3. Multifocal sclerotic lesions likely metastatic disease. 4. Multilevel degenerative changes of the cervical spine. Electronically signed by: Catrachito Hurley MD (04/17/2020 11:27 PM) [email or web address]
--- NOTE | 2020-04-17 23:46 | PHYS DOC ---
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 On arrival, EMS stated patient did have a pulse and was breathing but had pinpoint pupils and was given Narcan which he responded to. EMS found a bottle of pills in his pocket which consisted of hydrocodone and alprazolam. States that in route while he was awake, he was alert and oriented x3, with an NIH of 0. Patient's family followed to the emergency department and stated that he has had trouble several times in the past with taking too many of his hydrocodone, morphine and Xanax. States that they have taken the pills away from in an effort to give them to him appropriately but he puts up a fight and wants to dose his own medications. Review of Systems Review of Systems Review of systems obtained after patient woke up. Denies headache, fevers, recent illnesses, traumas, chest pain, shortness of breath, abdominal pain, nausea, vomiting, dysuria, hematuria or blood in the stool. Denies any numbness/weakness/tingling. Current Medications Current Medications Current Medications Medications (Trade) Dose Ordered Sig/Juan Manuel Start Time Stop Time Status Last Admin Dose Admin Lactated Ringer's 0 ml @ 500 mls/hr 1X ONCE 04/17/20 22:30 04/17/20 22:34 DC Allergies Allergies Allergies Coded Allergies Type Severity Reaction Last Updated Verified aspirin Allergy Severe Swelling 07/01/19 No oxycodone Allergy Severe 07/02/19 Yes tizanidine Allergy Severe 07/02/19 Yes Physical Exam Physical Exam Initially patient had a GCS of approximately 12 and was somnolent. After some time in the emergency department on the monitor patient woke up, was alert and wanted x3, NIH of 0, able to ambulate without issue. Constitutional: Well developed, well nourished, no acute distress, non-toxic appearance. [] HENT: Patient with a right sided forehead abrasion/hematoma Eyes: PERRLA, EOMI, conjunctiva normal, no discharge. [] Neck: Normal range of motion, no tenderness, supple, no stridor. [] Cardiovascular:Heart rate regular rhythm, no murmur [] Lungs & Thorax: Bilateral breath sounds clear to auscultation [] Abdomen: Bowel sounds normal, soft, no tenderness, no masses, no pulsatile masses. [] Skin: Warm, dry, no erythema, no rash. [] Back: No tenderness, no CVA tenderness. [] Extremities: No tenderness, no cyanosis, no clubbing, ROM intact, no edema. [] Neurologic: Alert and oriented X 3, normal motor function, normal sensory function, no focal deficits noted. [] Psychologic: Affect normal, judgement normal, mood normal. [] Current Patient Data Lab Results Laboratory Tests Test 04/17/20 22:00 White Blood Count 9.1 x10^3/uL (4.0-11.0) Red Blood Count 2.65 x10^6/uL (4.30-5.70) L Hemoglobin 9.2 g/dL (13.0-17.5) L Hematocrit 27.6 % (39.0-53.0) L Mean Corpuscular Volume 104 fL (79-100) H Mean Corpuscular Hemoglobin 35 pg (25-35) Mean Corpuscular Hemoglobin Concent 33 g/dL (31-37) Red Cell Distribution Width 18.1 % (11.5-14.5) H Platelet Count 207 x10^3/uL (140-400) Neutrophils (%) (Auto) 52 % (31-73) Lymphocytes (%) (Auto) 36 % (24-48) Monocytes (%) (Auto) 8 % (0-9) Eosinophils (%) (Auto) 5 % (0-3) H Basophils (%) (Auto) 0 % (0-3) Neutrophils # (Auto) 4.7 x10^3uL (1.8-7.7) Lymphocytes # (Auto) 3.3 x10^3/uL (1.0-4.8) Monocytes # (Auto) 0.7 x10^3/uL (0.0-1.1) Eosinophils # (Auto) 0.4 x10^3/uL (0.0-0.7) Basophils # (Auto) 0.0 x10^3/uL (0.0-0.2) Sodium Level 135 mmol/L (136-145) L Potassium Level 4.6 mmol/L (3.5-5.1) Chloride Level 99 mmol/L (98-107) Carbon Dioxide Level 23 mmol/L (21-32) Anion Gap 13 (6-14) Blood Urea Nitrogen 26 mg/dL (8-26) Creatinine 2.1 mg/dL (0.7-1.3) H Estimated GFR (Cockcroft-Gault) 30.9 BUN/Creatinine Ratio 12 (6-20) Glucose Level 92 mg/dL (70-99) Calcium Level 8.7 mg/dL (8.5-10.1) Total Bilirubin 0.2 mg/dL (0.2-1.0) Aspartate Amino Transferase (AST) 23 U/L (15-37) Alanine Aminotransferase (ALT) 17 U/L (16-63) Alkaline Phosphatase 87 U/L (46-116) Troponin I Quantitative < 0.017 ng/mL (0-0.055) Total Protein 7.6 g/dL (6.4-8.2) Albumin 3.8 g/dL (3.4-5.0) Albumin/Globulin Ratio 1.0 (1.0-1.7) EKG EKG EKG with a heart rate of 72, QRS of 76, QTc of 418, no STEMI. [] Radiology/Procedures Radiology/Procedures []FINDINGS: Examination is significantly limited by motion artifact. Within these constraints: There is no evidence of hemorrhage, mass or extra-axial fluid collection. Morillo-white differentiation is maintained with no evidence of edema. Subcortical, periventricular as well as deep white matter foci of hypoattenuation likely changes of chronic small vessel disease. There is no mass effect or shift of the intracranial structures. The ventricles, basilar cisterns and cortical sulci are normal in size and configuration for the patients stated age. The cerebellum and brainstem are unremarkable. Heterogeneous sclerosis in the right frontal region may represent underlying metastatic disease. Mastoid air cells are clear. Partial opacification left maxillary sinus likely sinusitis. The visualized portions of the orbits are normal. Scalp hematoma overlying the right frontal region. IMPRESSION: 1. Within the constraints of marked motion artifact, no evidence for acute intracranial process. 2. White matter changes likely chronic small vessel disease. 3. Scalp hematoma overlying the right frontal region. 4. Heterogeneous sclerosis right frontal region may represent metastatic focus. EXAM: CT CERVICAL SPINE WITHOUT IV CONTRAST CLINICAL HISTORY: Syncope/fall, lethargic, unable to hold still, follow directions COMPARISON: None available. TECHNIQUE: Helical CT of the cervical spine was performed. Axial, coronal and sagittal reformatted images were also performed. PQRS compliance statement - One or more of the following individualized dose reduction techniques were utilized for this study: 1. Automated exposure control 2. Adjustment of the mA and/or kV according to patient size 3. Use of iterative reconstruction technique FINDINGS: Examination is markedly limited given motion artifact. Heterogeneous sclerosis of the visualized osseous structures consistent with metastatic disease. Mild C2-3 disc height loss. Moderate to severe C3-4, C4-5, C5-6 and C6-7 and C7-T1 disc height loss. Endplate osteophytes are seen. Trace anterolisthesis of C5 on C6. Focal reversal of the normal cervical lordosis apex C6. Multilevel disc protrusions are seen most prominent at C4-5, C5-6, C6-7 and C7-T1. IMPRESSION: 1. Examination is markedly limited given motion artifact 2. No acute fracture or subluxation of the cervical spine 3. Multifocal sclerotic lesions likely metastatic disease. 4. Multilevel degenerative changes of the cervical spine. Electronically signed by: Catrachito Shultz MD (04/17/2020 11:27 PM) [facility] DICTATED AND SIGNED BY: CATRACHITO SHULTZ MD DATE: 04/17/20 8030 Heart Score Risk Factors: Risk Factors: DM, Current or recent (<one month) smoker, HTN, HLP, family history of CAD, obesity. Risk Scores: Risk Factors: DM, Current or recent (<one month) smoker, HTN, HLP, family history of CAD, obesity. Course & Med Decision Making Course & Med Decision Making Patient is a 74-year-old male who presented to the emergency department via EMS after syncopized in [facility] EMS gave Narcan x1 in route which the patient responded to well. A bottle of pills including hydrocodone and alprazolam were found in the patient's pocket but not marked so it was not known how many pills patient took. Vital signs not concerning. Physical exam noted above. Patient was placed on the monitor with IV access established on arrival. Narcan and flumazenil at the bedside. Patient over time quickly regained consciousness. Laboratory analysis not concerning. Imaging noted above not concerning. On reassessment patient was alert and oriented in no acute distress. NIH of 0. Able to ambulate. Patient stated that he did go to [facility] and was really tired because he has been up for over day watching movies on TV. States he sat down on the stool in the bathroom to have a bowel movement and thinks he took too much of his medication, made himself sleepy and fell off the stool onto the floor. Denies any pain except for small hematoma on right side of his head. Patient asked for a stool at bedside so he could have a bowel movement. Patient had a bowel movement. Patient asking for something to drink and eat. Patient asking for something closes he did get some stool on his clothes. Patient asking for his daughter and son-in-law to come pick him up and bring him home. Discussed all findings with patient and family and advised serious control over his medications as he has had overdoses in the past and there is a high risk of significant morbidity and even mortality if he were to overdose and someone were unable to get there. Advised to follow-up with primary care physician first thing tomorrow to discuss better pain management and medication management at home. Advised to come back to the ED with new or concerning symptoms. Family grateful, verbalized understanding and agreed with plan of discharge. [] Dragon Disclaimer Dragon Disclaimer This electronic medical record was generated, in whole or in part, using a voice recognition dictation system. Departure Departure: Impression: Primary Impression: Opioid overdose Additional Impression: Syncope Disposition: 01 DC HOME SELF CARE/HOMELESS Condition: GOOD Referrals: LON GUNDERSON MD (PCP) Patient Instructions: Narcotic Overdose, Opiate Dependence Problem Qualifiers YINA HERNANDEZ MD Apr 17, 2020 23:46
[2020-04-18 01:39] VITALS: BP 147/117
== END 2020-04-18 01:40 | disposition home or self-care (01) ==
LOC: ER 21:58
DX: T40.2X1A Poisoning by other opioids, accidental (unintentional), initial encounter (principal); R55 Syncope and collapse; E78.00 Pure hypercholesterolemia, unspecified; I10 Essential (primary) hypertension; E03.9 Hypothyroidism, unspecified; F32.9 Major depressive disorder, single episode, unspecified; G89.29 Other chronic pain; Z87.891 Personal history of nicotine dependence; Z88.6 Allergy status to analgesic agent; Z88.5 Allergy status to narcotic agent; Z88.8 Allergy status to other drugs, medicaments and biological substances; Y92.89 Other specified places as the place of occurrence of the external cause
CPT/HCPCS: 36415; 70450; 72125; 80053; 84484; 85025; 93005; 99285-25

== ENCOUNTER 2020-09-15 15:16 | Emergency (ER) | payer MEDICARE ==
[~2020-09-15] VITALS: Ht 172.7 cm; Wt 68.0 kg
[~2020-09-15 15:16] MED LIST changes: +LISI10TA16 PO; -LISI10TA2 PO; +SERT-269 PO; -SERT100T8 PO
--- NOTE | 2020-09-15 15:32 | PHYS DOC ---
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 Patient is a poor historian, majority of history is obtained from EMS who obtained history from family members on scene. Has had x3 days of nausea and intermittent episodes of nonbloody nonbilious emesis. Family members; specifically daughter who is primary scarfer operator of patient at home, states that patient has had white discharge and occasional hematuria present from suprapubic catheter. Daughter is concerned as last time patient suffered similar symptoms, he was septic with a UTI. Last suprapubic catheter change was approximately 6 months ago. Patient has complex past medical history concerning for prostate cancer with mets, patient is not receiving treatment for this. All of his outpatient care is supposedly managed at [facility]. Also has history of end-stage renal disease with intermittent hemodialysis, patient is unclear when the last time he attended hemodialysis was. There has been no reported fever, change in medications, trauma, falls, chest pain, shortness of breath, abdominal pain, changes in motor sensory or neurologic function Review of Systems Review of Systems Fourteen body systems of review of systems have been reviewed. See HPI for per tinent positives and negative responses, other orosco all other systems are negative, non-pertinent or non-contributory Allergies Allergies Allergies Coded Allergies Type Severity Reaction Last Updated Verified aspirin Allergy Severe Swelling 07/01/19 No oxycodone Allergy Severe 07/02/19 Yes tizanidine Allergy Severe 07/02/19 Yes Physical Exam Physical Exam Constitutional: Thin, malnourished, nontoxic appearing HENT: Normocephalic, atraumatic, bilateral external ears normal, oropharynx moist, no oral exudates, nose normal. Eyes: PERRLA, EOMI, conjunctiva normal, no discharge. Neck: Normal range of motion, no tenderness, supple, no stridor. Cardiovascular: Heart rate regular, sinus rhythm, no murmurs rubs or gallops Lungs & Thorax: Bilateral breath sounds clear to auscultation Abdomen: Bowel sounds normal, soft, suprapubic tenderness with suprapubic catheter present without redness/streaking/expressible exudate. There is white exudate present from suprapubic catheter within tube and streaking hematuria. Otherwise, no masses, no pulsatile abdominal masses. Nonsurgical abdomen, no peritoneal signs. : Circumcised well-appearing penis with descended x2 testicles without remarkable findings. Skin: Warm, dry, no erythema, no rash. Back: No tenderness, no CVA tenderness. Extremities: No tenderness, no cyanosis, no clubbing, ROM intact, no edema. Neurologic: Alert and oriented to person and place but not time, cranial nerves II through XII intact, normal motor & sensory function, no focal deficits noted. Psychologic: Affect normal, judgement normal, mood normal. Current Patient Data Vital Signs Vital Signs Date Time Temp Pulse Resp B/P (MAP) Pulse Ox O2 Delivery O2 Flow Rate FiO2 09/15/20 15:56 98.1 82 16 151/91 (111) 95 Room Air Vital Signs Date Time Temp Pulse Resp B/P (MAP) Pulse Ox O2 Delivery O2 Flow Rate FiO2 09/15/20 15:56 98.1 82 16 151/91 (111) 95 Room Air Lab Results Laboratory Tests Test 09/15/20 15:50 09/15/20 16:25 White Blood Count 7.7 x10^3/uL Red Blood Count 2.09 x10^6/uL Hemoglobin 7.0 g/dL Hematocrit 20.9 % Mean Corpuscular Volume 100 fL Mean Corpuscular Hemoglobin 34 pg Mean Corpuscular Hemoglobin Concent 34 g/dL Red Cell Distribution Width 21.6 % Platelet Count 109 x10^3/uL Neutrophils (%) (Auto) 81 % Lymphocytes (%) (Auto) 13 % Monocytes (%) (Auto) 6 % Eosinophils (%) (Auto) 0 % Basophils (%) (Auto) 1 % Neutrophils # (Auto) 6.2 x10^3uL Lymphocytes # (Auto) 1.0 x10^3/uL Monocytes # (Auto) 0.5 x10^3/uL Eosinophils # (Auto) 0.0 x10^3/uL Basophils # (Auto) 0.0 x10^3/uL Segmented Neutrophils % 80 % Lymphocytes % 17 % Monocytes % 3 % Platelet Estimate Decreased Anisocytosis Mod Sodium Level 126 mmol/L Potassium Level 7.0 mmol/L Chloride Level 90 mmol/L Carbon Dioxide Level 14 mmol/L Anion Gap 22 Blood Urea Nitrogen 191 mg/dL Creatinine 9.9 mg/dL Estimated GFR (Cockcroft-Gault) 5.1 BUN/Creatinine Ratio 19 Glucose Level 186 mg/dL Lactic Acid Level 1.4 mmol/L Calcium Level 9.3 mg/dL Total Bilirubin 0.6 mg/dL Aspartate Amino Transf (AST/SGOT) 27 U/L Alanine Aminotransferase (ALT/SGPT) 41 U/L Alkaline Phosphatase 195 U/L Troponin I Quantitative < 0.017 ng/mL Total Protein 7.9 g/dL Albumin 2.7 g/dL Albumin/Globulin Ratio 0.5 Urine Collection Type Unknown Urine Color Red Urine Clarity Turbid Urine pH 6.5 Urine Specific [place] 1.020 Urine Protein >100 mg/dl Urine Glucose (UA) 100 mg/dL Urine Ketones (Stick) Neg mg/dL Urine Blood Large Urine Nitrite Neg Urine Bilirubin Neg Urine Urobilinogen Dipstick 0.2 mg/dL Urine Leukocyte Esterase Small Urine RBC Tntc /HPF Urine WBC 11-20 /HPF Urine Squamous Epithelial Cells Occ /LPF Urine Bacteria Mod /HPF Current Medications Medications (Trade) Dose Ordered Sig/Juan Manuel Route PRN Reason Start Time Stop Time Status Last Admin Dose Admin Calcium Gluconate (Calcium Gluconate) 1,000 mg STK-MED ONCE .ROUTE 09/15/20 16:55 09/15/20 16:56 DC Dextrose (Dextrose 50%-Water Syringe) 25 gm STK-MED ONCE IV 09/15/20 16:55 09/15/20 16:56 DC Sodium Chloride 50 ml @ As Directed STK-MED ONCE .ROUTE 09/15/20 16:57 09/15/20 16:57 DC Calcium Gluconate (Calcium Gluconate) 1,000 mg 1X ONCE IV 09/15/20 17:15 09/15/20 17:16 DC 09/15/20 17:08 Dextrose (Dextrose 50%-Water Syringe) 25 gm 1X ONCE IV 09/15/20 17:15 09/15/20 17:16 DC 09/15/20 17:11 Insulin Human Regular (HumuLIN R VIAL) 5 unit 1X ONCE IV 09/15/20 17:15 09/15/20 17:16 DC 09/15/20 17:09 Sodium Chloride 1,000 ml @ 1,000 mls/hr Q1H IV 09/15/20 17:15 09/15/20 18:14 09/15/20 17:11 Ceftriaxone Sodium 2 gm/ Sodium Chloride 100 ml @ 200 mls/hr 1X ONCE IV 09/15/20 17:15 09/15/20 17:44 DC EKG EKG EKG ordered and interpreted by myself at 1559 hrs. as sinus rhythm at 84 bpm, unremarkable intervals, no axis deviation, no acute ischemic findings, peaked T waves in leads V2 through V6, no STEMI Radiology/Procedures Radiology/Procedures [] Heart Score C/O Chest Pain: No HEART Score for Chest Pain: HEART Score for Chest Pain Response (Comments) Value History Moderately Suspicious 1 ECG Normal 0 Age > 65 2 Risk Factors >3 Risk Factors or Hx CAD 2 Troponin < Normal Limit 0 Total 5 Risk Factors: Risk Factors: DM, Current or recent (<one month) smoker, HTN, HLP, family history of CAD, obesity. Risk Scores: Risk Factors: DM, Current or recent (<one month) smoker, HTN, HLP, family history of CAD, obesity. Course & Med Decision Making Course & Med Decision Making ABCs unremarkable. HPI and physical exam concerning for UTI. Diagnostic work- up performed concerning for anemia without ongoing/active blood loss but findings of hematuria. UTI. Acute on chronic kidney failure with hyperkalemia No indication for immediate transfusion, our facility will not be able to provide specific blood patient requires for transfusion and so, this was deferred. Rocephin 2 g started for UTI. X1 amp calcium gluconate and 5 IV insulin with x1 amp dextrose administered for hyperkalemia. 1 L IV NS given I contacted [facility] to obtain more information as patient sees them in outpatient setting. Case was discussed and ultimate need for transfer was reviewed and agreed upon by accepting physician, Dr. Sandoval I updated patient on proposed plan of care that included hospital transfer, he was amenable. I attempted to contact daughter and other family members without success in order to notify them of patient transfer Critical Care Time This patient required critical care. Due to the fact that the patient required a significant amount of one on one physician - patient contact time, ordering and review of studies, arranging urgent treatment with development of a management plan, evaluation of patients response to treatment with frequent reassessments, and discussions with other providers this patient required 55 minutes of critical care time. Critical care time was indicated due to the inherent instability and/or potential for instability in this patient. The critical care time that is allocated to this patient is above and beyond any time spent on any other billable procedures performed on this patient. Dragon Disclaimer Dragon Disclaimer This electronic medical record was generated, in whole or in part, using a voice recognition dictation system. Departure Departure: Impression: Primary Impression: Hyperkalemia Additional Impressions: UTI (urinary tract infection) Anemia Kidney failure Hematuria Disposition: 02 [facility] ([facility]) Admitting Physician: Other (DR SANDOVAL) Condition: STABLE Referrals: LON GUNDERSON MD (PCP) Problem Qualifiers AGUSTINA HUFF DO Sep 15, 2020 15:32
[2020-09-15 15:56] VITALS: BP 151/91
--- NOTE | 2020-09-15 16:06 | EKG ---
[address] [address] Test Date: 2020-09-15 Test Time: 15:50:39 Pat Name: ARELY MELENDREZ Department: Room: Gender: M Manager Oncology: SONG : 1945 Requested By: AGUSTINA HUFF Order Number: [id number] Reading MD: Measurements Intervals [place] Rate: 84 P: 48 AL: 166 QRS: 51 QRSD: 84 T: 42 QT: 332 QTc: 395 Interpretive Statements SINUS RHYTHM NO SPECIFIC ECG ABNORMALITIES RI6.02 No previous ECG available for comparison
[2020-09-15 16:14] LABS: HEMATOCRIT 20.9 % (39.0-53.0); LYMPH % 13 % (24-48); MEAN CORPUSCULAR HEMOGLOBIN 34 pg (25-35); MEAN CORPUSCULAR HGB CONC 34 g/dL (31-37); MEAN CORPUSCULAR VOLUME 100 fL (79-100); NEUT % 81 % (31-73); PLATELET COUNT 109 x10^3/uL (140-400); RED BLOOD COUNT 2.09 x10^6/uL (4.30-5.70); RED CELL DISTRIBUTION WIDTH 21.6 % (11.5-14.5); WHITE BLOOD COUNT 7.7 x10^3/uL (4.0-11.0)
[2020-09-15 16:15] LABS: BASO % 1 % (0-3); EOS % 0 % (0-3); MONO # 0.5 x10^3/uL (0.0-1.1); MONO % 6 % (0-9); NEUT # 6.2 x10^3uL (1.8-7.7)
[2020-09-15 16:29] LABS: % LYMPHS 17 % (24-48); % MONOS 3 % (0-10); % SEGS 80 % (35-66); ANISOCYTOSIS MOD; PLT ESTIMATE DECREASED (ADEQUATE)
[2020-09-15 16:43] LABS: ALBUMIN 2.7 g/dL (3.4-5.0); ALBUMIN/GLOBULIN RATIO 0.5 (1.0-1.7); CALCIUM 9.3 mg/dL (8.5-10.1); CREATININE 9.9 mg/dL (0.7-1.3); GFR 5.1; TOTAL BILIRUBIN 0.6 mg/dL (0.2-1.0); TOTAL PROTEIN 7.9 g/dL (6.4-8.2)
[2020-09-15] MEDS ORDERED: DEXTROSE 50% 25 GM / 50ML DISP.SYRIN. IV ONE ×2 (16:55→17:15)
[2020-09-15] MEDS ORDERED: CALCIUM GLUCONATE 1,000 MG/10 ML VIAL ONE (16:55)
[2020-09-15] MEDS ORDERED: IV NORMAL SALINE 50ML 50 ML ONE (16:57)
[2020-09-15 17:14] LABS: BILIRUBIN,URINE NEG (NEG); CLARITY,URINE TURBID; COLOR,URINE RED; GLUCOSE,URINE 100 mg/dL (NEG); NITRITE,URINE NEG (NEG); UROBILINOGEN,URINE 0.2 mg/dL (0.2 mg/dL)
[2020-09-15] MEDS ORDERED: CALCIUM GLUCONATE 1,000 MG/10 ML VIAL IV ONE (17:15)
[2020-09-15] MEDS ORDERED: INSULIN REGULAR 100 UNIT/ML 3ML VIAL. IV ONE (17:15)
[2020-09-15] MEDS ORDERED: IV NORMAL SALINE 1,000ML 1,000 ML IV SCH (17:15)
[2020-09-15 17:28] LABS: BACTERIA,URINE MOD /HPF (0-FEW); RBC,URINE TNTC /HPF (0-2); SQUAMOUS EPITHELIAL CELL,UR OCC /LPF
== END 2020-09-15 20:07 | disposition short-term general hospital (02) ==
LOC: ER 15:16
DX: D64.9 Anemia, unspecified (principal); N39.0 Urinary tract infection, site not specified; E87.5 Hyperkalemia; N19 Unspecified kidney failure; E78.5 Hyperlipidemia, unspecified; I10 Essential (primary) hypertension; F17.210 Nicotine dependence, cigarettes, uncomplicated; Z88.6 Allergy status to analgesic agent; Z88.5 Allergy status to narcotic agent; Z90.49 Acquired absence of other specified parts of digestive tract
CPT/HCPCS: 36415; 80053; 81001; 82947; 83605; 84484; 85007; 85025; 87040; 87086; 93005; 96361; 96374; 96375; 99291; J0610; J1815; J7030; 87077

== ENCOUNTER 2020-10-07 15:09 | Emergency (ER) | payer MEDICARE ==
[~2020-10-07] VITALS: Ht 172.7 cm; Wt 68.0 kg
[2020-10-07 15:59] VITALS: BP 133/67
--- NOTE | 2020-10-07 18:50 | PHYS DOC ---
Past History Past Medical History: Cancer, Hypertension Additional Past Medical Histor: chronic pain, D/T bone cancer w mets (prostate, kidneys, bladder) Past Surgical History: Other Additional Past Surgical Histo: pt unknown at this time - bilat posterior urostomy, suprapubic Smoking: Cigarettes, Quit Greater Than 1 Year Alcohol Use: None Drug Use: None General Adult EDM: Chief Complaint: URINE CATHETER PROBLEM HPI: HPI: Patient is a 75-year-old male who presents with decreased urine output. Patient has urostomy's bilaterally and a super pubic catheter. Patient states "I have not put much out since yesterday". Patient reports catheter has been clogged before due to cancer. Patient has a history of prostate, bladder cancer. Patient is reporting pain. Patient's denying fever. Patient also has history of hypertension. Review of Systems: Review of Systems: Constitutional: Denies fever or chills Eyes: Denies change in visual acuity HENT: Denies nasal congestion or sore throat Respiratory: Denies cough or shortness of breath Cardiovascular: Denies chest pain or edema GI: Denies abdominal pain, nausea, vomiting, bloody stools or diarrhea : Reports decreased urine output, denies dysuria Musculoskeletal: Denies back pain or joint pain Integument: Denies rash Neurologic: Denies headache, focal weakness or sensory changes Endocrine: Denies polyuria or polydipsia Lymphatic: Denies swollen glands Psychiatric: Denies depression or anxiety Allergies: Allergies: Allergies Coded Allergies Type Severity Reaction Last Updated Verified aspirin Allergy Severe Swelling 07/01/19 No oxycodone Allergy Severe 07/02/19 Yes tizanidine Allergy Severe 07/02/19 Yes Physical Exam: PE: Constitutional: Well developed, well nourished, no acute distress, non-toxic appearance. [] HENT: Normocephalic, atraumatic, bilateral external ears normal, oropharynx moist, no oral exudates, nose normal. [] Eyes: PERRLA, EOMI, conjunctiva normal, no discharge. [] Neck: Normal range of motion, no tenderness, supple, no stridor. [] Cardiovascular:Heart rate regular rhythm, no murmur [] Lungs & Thorax: Bilateral breath sounds clear to auscultation [] Abdomen: Bowel sounds normal, soft, no tenderness, no masses, no pulsatile masses. [] Skin: Warm, dry, no erythema, no rash. [] Back: No tenderness, no CVA tenderness. [] Extremities: No tenderness, no cyanosis, no clubbing, ROM intact, no edema. [] Neurologic: Alert and oriented X 3, normal motor function, normal sensory function, no focal deficits noted. [] Psychologic: Affect normal, judgement normal, mood normal. [] Current Patient Data: Vital Signs: Vital Signs Date Time Temp Pulse Resp B/P (MAP) Pulse Ox O2 Delivery O2 Flow Rate FiO2 10/07/20 15:59 98.6 70 18 133/67 97 Room Air EKG: EKG: [] Radiology/Procedures: Radiology/Procedures: [] Heart Score: C/O Chest Pain: No Risk Factors: Risk Factors: DM, Current or recent (<one month) smoker, HTN, HLP, family history of CAD, obesity. Risk Scores: Score 0 - 3: 2.5% MACE over next 6 weeks - Discharge Home Score 4 - 6: 20.3% MACE over next 6 weeks - Admit for Clinical Observation Score 7 - 10: 72.7% MACE over next 6 weeks - Early Invasive Strategies Course & Med Decision Making: Course & Med Decision Making Pertinent Labs and Imaging studies reviewed. (See chart for details) [] 75-year-old male presents with decreased urine output from his suprapubic catheter. Patient has bilateral urostomy's and a suprapubic catheter. Patient has a history of prostate and bladder cancer. [facility] Bladder scan showed 22 mils. Patient still insisting that he is uncomfortable and that he knows that his urine output has been decreased. Patient has a history of suprapubic catheter being blocked. After catheter was irrigated. Patient stated that he wanted to leave and be discharged to home. Explained to patient that his hemoglobin was 5.8, hematocrit 17.1, platelet 51. Discussed with patient that he needed to have a blood transfusion. Patient is stating that he understands he needs a blood transfusion but that he does not want to stay. I discussed the risk of being discharged to home and not being admitted to the hospital with a hemoglobin of 5.8. patient states that he is aware of the risk and he still would like to be discharged home. Patient's daughter was called by RN. Daughter was informed patient was wanting to leave AMA. Daughter states someone told her that they would be willing to change his suprapubic catheter while in the emergency room and that they better not be billed for being seen in the ER. RN also discussed critical lab values with daughter. Patient is willing to sign AMA paperwork. Patient states that he has an appointment on 7July and he will follow-up then. Dragon Disclaimer: Dragon Disclaimer: This electronic medical record was generated, in whole or in part, using a voice recognition dictation system. Departure Departure: Impression: Primary Impression: Decreased urine output Disposition: LEFT AGAINST MEDICAL ADVICE Condition: CRITICAL Referrals: LON GUNDERSON MD (PCP) Patient Instructions: Suprapubic Catheter Home Guide COLTEN CHAMBERS APRN Oct 07, 2020 18:50
[2020-10-07 18:59] LABS: BASO % 1 % (0-3); EOS % 1 % (0-3); LYMPH % 63 % (24-48); MEAN CORPUSCULAR HEMOGLOBIN 33 pg (25-35); MEAN CORPUSCULAR HGB CONC 34 g/dL (31-37); MEAN CORPUSCULAR VOLUME 97 fL (79-100); MONO # 0.2 x10^3/uL (0.0-1.1); MONO % 7 % (0-9); NEUT # 0.9 x10^3uL (1.8-7.7); NEUT % 28 % (31-73); PLATELET COUNT 51 x10^3/uL (140-400); RED BLOOD COUNT 1.76 x10^6/uL (4.30-5.70); RED CELL DISTRIBUTION WIDTH 19.2 % (11.5-14.5); WHITE BLOOD COUNT 3.1 x10^3/uL (4.0-11.0)
[2020-10-07 19:14] LABS: CALCIUM 8.2 mg/dL (8.5-10.1); CREATININE 2.4 mg/dL (0.7-1.3); GFR 26.4; HEMATOCRIT 17.1 % (39.0-53.0); HEMOGLOBIN 5.8 g/dL (13.0-17.5)
[2020-10-07 19:19] LABS: ALBUMIN 2.9 g/dL (3.4-5.0); ALBUMIN/GLOBULIN RATIO 0.6 (1.0-1.7); TOTAL BILIRUBIN 0.2 mg/dL (0.2-1.0); TOTAL PROTEIN 7.4 g/dL (6.4-8.2)
[2020-10-07 19:53] LABS: % BANDS 1 % (0-9); % LYMPHS 69 % (24-48); % METAS 1 % (0-0); % MONOS 2 % (0-10); % SEGS 27 % (35-66)
[2020-10-07 19:54] LABS: PLT ESTIMATE DECREASED (ADEQUATE)
== END 2020-10-07 19:38 | disposition left against medical advice (07) ==
LOC: ER 15:09
DX: R39.12 Poor urinary stream (principal); I10 Essential (primary) hypertension; F17.210 Nicotine dependence, cigarettes, uncomplicated; Z88.6 Allergy status to analgesic agent; Z88.5 Allergy status to narcotic agent
CPT/HCPCS: 36415; 80053; 85007; 85025; 99283